=== PATIENT | female | born 1960 | race Caucasian/White ===

== ENCOUNTER 2017-04-21 17:59 | Emergency (ER) | payer BC, OTHER ==
--- NOTE | 2017-04-21 18:01 | PDOC ---
History of Present Illness - General History Source: Patient Exam Limitations: No Limitations - History of Present Illness Initial Comments: 04/21/17 18:31 The patient is a 56 year old female with a significant past medical history of smoking, who presents to the ER with nasal congestion, shortness of breath, and vomiting for two days. Patient states she has congestion and coughing for the past two days with associated chills, nausea, and nonbilious/nonbloody vomiting. She states she has also had a subjective fever. Denies abdominal pain, diarrhea Denies chest pain, heart palpitations Denies lightheadedness Denies lower extremity swelling Social Hx: Patient admits to smoking - 1 pack of cigs Allergies: NKDA <eZe Menard - Last Filed: 04/21/17 18:36> <Paddy Doe - Last Filed: 04/21/17 18:58> - General Chief Complaint: Respiratory Stated Complaint: COUGH, NASAL CONGESTION, SORE THROAT Time Seen by Provider: 04/21/17 18:01 Past History <Zee Menard - Last Filed: 04/21/17 18:36> <Paddy Doe - Last Filed: 04/21/17 18:58> - Past Medical History Allergies/Adverse Reactions: Allergies Allergy/AdvReac Type Severity Reaction Status Date / Time diazepam [From Valium] Allergy Verified 04/21/17 18:01 Home Medications: Ambulatory Orders NK [No Known Home Medication] 04/21/17 Review of Systems - Review of Systems Able to Perform ROS?: Yes Comments:: 04/21/17 18:31 GENERAL/CONSTITUTIONAL: (+) subjective fever, (+) chills. No weakness. HEAD, EYES, EARS, NOSE AND THROAT: (+) nasal congestion, (+) post nasal drip. No change in vision. No ear pain or discharge. No sore throat. CARDIOVASCULAR: (+) shortness of breath. No chest pain. RESPIRATORY: (+) cough. No wheezing, or hemoptysis. GASTROINTESTINAL: (+) Nausea, (+) vomiting. No diarrhea or constipation. GENITOURINARY: No dysuria, frequency, or change in urination. MUSCULOSKELETAL: No joint or muscle swelling or pain. No neck or back pain. SKIN: No rash NEUROLOGIC: No headache, vertigo, loss of consciousness, or change in strength/ sensation. ENDOCRINE: No increased thirst. No abnormal weight change. HEMATOLOGIC/LYMPHATIC: No anemia, easy bleeding, or history of blood clots. ALLERGIC/IMMUNOLOGIC: No hives or skin allergy. <MesylviaZee - Last Filed: 04/21/17 18:36> *Physical Exam - Vital Signs Last Vital Signs Temp Pulse Resp BP Pulse Ox 98.9 F 93 H 20 140/91 98 04/21/17 18:00 04/21/17 18:00 04/21/17 18:00 04/21/17 18:00 04/21/17 18:00 - Physical Exam Comments: 04/21/17 18:33 GENERAL: Awake, alert, and fully oriented, in no acute distress HEAD: No signs of trauma EYES: PERRLA, EOMI, sclera anicteric, conjunctiva clear ENT: Auricles normal inspection, hearing grossly normal, nares patent, oropharynx clear without exudates. Moist mucosa NECK: Normal ROM, supple, no lymphadenopathy, JVD, or masses LUNGS: Coarse lung sounds. No wheezes, and no crackles HEART: Regular rate and rhythm, normal S1 and S2, no murmurs, rubs or gallops ABDOMEN: Soft, nontender, normoactive bowel sounds. No guarding, no rebound. No masses EXTREMITIES: Normal range of motion, no edema. No clubbing or cyanosis. No cords, erythema, or tenderness NEUROLOGICAL: Cranial nerves II through XII grossly intact. Normal speech, normal gait SKIN: Warm, Dry, normal turgor, no rashes or lesions noted. <MesylviaZee - Last Filed: 04/21/17 18:36> Heart Score/ECG Review - ECG Impressions Comment:: 04/21/17 18:35 EKG read and reviewed by Dr. Doe: Sinus tachycardia. Vent rate: 108 bpm. OK interval: 130 ms. QRS duration: 78 ms <MesylviaZee - Last Filed: 04/21/17 18:36> ED Treatment Course - LABORATORY CBC & Chemistry Diagram: 04/21/17 18:15 04/21/17 18:15 - Medications Given in the ED: ED Medications Discontinued Medications Generic Name Dose Route Start Last Admin Trade Name Freq PRN Reason Stop Dose Admin Albuterol/Ipratropium 1 amp 04/21/17 18:05 04/21/17 18:10 Duoneb - NEB 04/21/17 18:06 1 amp ONCE ONE Administration Prednisone 40 mg 04/21/17 18:05 04/21/17 18:10 Deltasone - PO 04/21/17 18:06 40 mg ONCE ONE Administration <Zee Menard - Last Filed: 04/21/17 18:36> - LABORATORY CBC & Chemistry Diagram: 04/21/17 18:15 04/21/17 18:15 - RADIOLOGY Radiology Studies Ordered: 04/21/17 18:57 CXR no infiltrate increased markings <Paddy Doe - Last Filed: 04/21/17 18:58> Progress Note - Progress Note Progress Note: Pt is feeling better after Prednisone and Nebulizer treatment Awaiting CXR Most likely has bronchitis with underlying emphysema Vitals stable and feeling better Will need to be placed on antibiotics, albuterol MDI and Steroids for 5 days Further disposition as per Dr. Mireles <Paddy Doe - Last Filed: 04/21/17 18:58> *DC/Admit/Observation/Transfer - Attestations Scribe Attestion: 04/21/17 18:34 Documentation prepared by Zee Menard, acting as medical receptionist assistant for Paddy Doe DO. <Zee Menard - Last Filed: 04/21/17 18:36> <Paddy Doe - Last Filed: 04/21/17 18:58> Diagnosis at time of Disposition: Acute asthmatic bronchitis - Discharge Dispostion Condition at time of disposition: Stable
[2017-04-21] MEDS ORDERED: predniSONE 20 MG TABLET (UD) PO ONE (18:05)
[2017-04-21] MEDS ORDERED: ALBUTEROL SO4 2.5/IPRATROPIUM 0.5 INH SOL 3 ML VIAL.NEB. NEB ONE ×2 (18:05→18:06)
[2017-04-21] MEDS ORDERED: predniSONE 20 MG TABLET (UD) ONE (18:08)
[2017-04-21 18:19] VITALS: BP 140/91; PULSE 93; TEMP 98.9; BMI 32.0
[2017-04-21 18:33] LABS: BASOPHIL 3.6 % (0-2.0); EOSINOPHIL 1.9 % (0-4.5); MCH 30.4 pg (25.7-33.7); MCHC 33.6 g/dl (32.0-36.0); MEAN CELL VOLUME 90.4 fl (80-96); MEAN PLT VOLUME 8.4 fl (7.5-11.1); NEUTROPHILS 67.8 % (42.8-82.8); PLATELET COUNT 312 K/MM3 (134-434); RDW 13.2 % (11.6-15.6); WHITE BLOOD COUNT 12.6 K/mm3 (4.0-10.8)
[2017-04-21 18:44] LABS: ALK PHOS 98 U/L (32-92); BILIRUBIN,TOTAL 0.6 mg/dl (0.2-1.0); CPK(DFH) 84 IU/L (26-140); CREATININE 0.6 mg/dl (0.6-1.3); GLUCOSE,RANDOM 115 mg/dl (74-106); SGOT/AST 21 U/L (10-42); SGPT/ALT 22 U/L (10-40); TOT PROT 7.6 g/dl (6.4-8.3)
[2017-04-21 19:06] LABS: TROPONIN I (DFP) < 0.03 ng/ml (0.03-0.50)
[2017-04-21 19:08] LABS: ANION GAP 6 (8-16); CALCIUM 9.1 mg/dl (8.4-10.2); CO2 28 mmol/L (22-28)
[2017-04-21] MEDS ORDERED: LEVOFLOXACIN 750 MG TABLET PO STA (19:15)
[2017-04-21] MEDS ORDERED: LEVOFLOXACIN 250 MG TABLET (FP) ONE (19:21)
[2017-04-21] MEDS ORDERED: LEVOFLOXACIN 500 MG TABLET (FP) ONE (19:22)
--- NOTE | 2017-04-21 19:26 | PDOC ---
*Physical Exam - Vital Signs Last Vital Signs Temp Pulse Resp BP Pulse Ox 98.9 F 93 H 20 140/91 98 04/21/17 18:00 04/21/17 18:00 04/21/17 18:00 04/21/17 18:00 04/21/17 18:00 ED Treatment Course - LABORATORY CBC & Chemistry Diagram: 04/21/17 18:15 04/21/17 18:15 - ADDITIONAL ORDERS Additional order review: Laboratory Results 04/21/17 04/21/17 18:15 18:15 Sodium 134 L Potassium 4.5 Chloride 100 Carbon Dioxide 28 Anion Gap 6 L BUN 7 Creatinine 0.6 Creat Clearance w eGFR > 60 Random Glucose 115 H Calcium 9.1 Total Bilirubin 0.6 AST 21 ALT 22 Alkaline Phosphatase 98 H Creatine Kinase 84 Troponin I < 0.03 L Total Protein 7.6 Albumin 4.0 04/21/17 18:15 RBC 4.92 MCV 90.4 MCHC 33.6 RDW 13.2 MPV 8.4 Neutrophils % 67.8 Lymphocytes % 17.8 Monocytes % 8.9 Eosinophils % 1.9 Basophils % 3.6 H - Medications Given in the ED: ED Medications Discontinued Medications Generic Name Dose Route Start Last Admin Trade Name Freq PRN Reason Stop Dose Admin Albuterol/Ipratropium 1 amp 04/21/17 18:05 04/21/17 18:10 Duoneb - NEB 04/21/17 18:06 1 amp ONCE ONE Administration Prednisone 40 mg 04/21/17 18:05 04/21/17 18:10 Deltasone - PO 04/21/17 18:06 40 mg ONCE ONE Administration Progress Note - Progress Note Progress Note: This is a 56-year-old female who comes in complaining of difficulty breathing. Patient has a history of COPD he and is a heavy smoker. Patient was seen and treated by Dr. Moore. Patient feels better after 2 albuterol nebulizer treatments and some prednisone. Patient has a mildly elevated white count Patient's x-rays unremarkable but may have some mild increase in markings consistent with bronchitis Will start patient on a short course of Levaquin In addition to that we'll give patient a short course of some steroids Patient will be referred to a operations architect for her COPD Patient discharged home. *DC/Admit/Observation/Transfer Diagnosis at time of Disposition: Acute asthmatic bronchitis COPD (chronic obstructive pulmonary disease) Qualifiers: COPD type: unspecified COPD Qualified Code(s): J44.9 - Chronic obstructive pulmonary disease, unspecified - Discharge Dispostion Disposition: HOME Condition at time of disposition: Stable Admit: No - Prescriptions Prescriptions: Prednisone [Deltasone] 40 mg PO DAILY #8 tablet Levofloxacin [Levaquin -] 500 mg PO DAILY #5 tablet Albuterol Sulfate Inhaler - [Ventolin Hfa Inhaler -] 1 - 2 inh PO Q4H #1 inhaler - Referrals Referrals: Shiva Payne MD [Staff Physician] - - Patient Instructions Printed Discharge Instructions: Chronic Obstructive Pulmonary Disease ( Alternative Therapy), DI for Chronic Obstructive Pulmonary Disease Additional Instructions: Take Levaquin 1 tablet a day for 5 days. Take prednisone 40 mg a day for 4 days. Follow-up with a operations architect if he needed operations architect call Dr. Payne for an appointment. Use the inhaler 2 puffs as often as every 4-6 hours as needed Return to the emergency department immediately with ANY new, persistent or worsening symptoms. Continue any medications as previously prescribed by your physician. You should follow up with your primary doctor as soon as possible regarding today's emergency department visit. . Please make sure your doctor reviews the results of your emergency evaluation. Thank you for coming to the Emergency Department today for your care. It was a pleasure to see you today. Please note that your evaluation is INCOMPLETE until you follow-up with your doctor.
--- NOTE | 2017-04-22 14:21 | EKG ---
Test Reason : Blood Pressure : / mmHG Vent. Rate : 108 BPM Atrial Rate : 108 BPM P-R Int : 130 ms QRS Dur : 078 ms QT Int : 346 ms P-R-T Axes : 082 085 067 degrees QTc Int : 463 ms SINUS TACHYCARDIA OTHERWISE NORMAL ECG WHEN COMPARED WITH ECG OF 30-MAR-2004 11:38, NO SIGNIFICANT CHANGE WAS FOUND Confirmed by WAYNE RUSSO MD ([id number]) on 04/22/2017 2:20:43 PM Referred By: EULA Confirmed By:WAYNE RUSSO MD
== END 2017-04-21 19:40 | disposition home or self-care (01) ==
LOC: FER 17:59
PROC: 3E0F7GC Introduction of Other Therapeutic Substance into Respiratory Tract, Via Natural or Artificial Opening (ICD-10-PCS; principal; 2017-04-21)
DX: J45.998 Other asthma (principal); F17.210 Nicotine dependence, cigarettes, uncomplicated
CPT/HCPCS: 36415; 71020-TC; 80053; 82550; 84484; 85025; 93005; 99283-25

== ENCOUNTER 2022-02-21 04:40 | Day surgery (SDC) | payer OTHER ==
[2022-02-19 16:07] VITALS: BMI 27.8
[2022-02-21 14:18] VITALS: BP 129/92; PULSE 74; TEMP 97.3
== END 2022-02-21 15:56 | disposition home or self-care (01) ==
LOC: JRADIR 04:40
PROVIDERS: ATTEND Family Medicine
PROC: 0BBF3ZX Excision of Right Lower Lung Lobe, Percutaneous Approach, Diagnostic (ICD-10-PCS; principal; 2022-02-21)
DX: C34.31 Malignant neoplasm of lower lobe, right bronchus or lung (principal)
CPT/HCPCS: 32408; 71046-TC-FY; 87070; 87075; 87102; 87116; 87205; 87206; 87210; 88305-TC